=== PATIENT | female | born 1965 | race Caucasian/White ===

== ENCOUNTER 2018-08-02 12:45 | Outpatient (RCR) | payer OTHER, SELFPAY ==
--- NOTE | 2018-02-26 16:12 | PT.OTN ---
Current Diagnoses Mixed incontinence (04/12/18) Other specified urinary incontinence (04/12/18) Other symptoms and signs involving the musculoskeletal system (04/12/18) Transition note: On February 19, 2018 our therapy services consisting of Speech, Occupational, and Physical Therapy transitioned from the [employer] electronic documentation system to a new [facility] electronic documentation system.?? All documentation prior to February 19 can be found under [employer] saved data. From February 19 forward all medical record documentation will be in [facility] 6.1.
--- NOTE | 2018-04-12 15:00 | PT.OPPOC ---
Current Diagnoses Mixed incontinence (04/12/18) Other specified urinary incontinence (04/12/18) Other symptoms and signs involving the musculoskeletal system (04/12/18) Provider Visit Care Team Role Provider Type Caroline Funes MD Family Provider Non-Staff Primary Care Provider Specialty: Medical Address: [address] [place] [address], [place], [address] Email: Natali Davison MD Attending Provider Physician Specialty: WORKERS COMPENSATION EXAMINER Address: [address] [place] [address], [address] Email: [email or web address] Plan Of Care PT-OP-T Assessment and Plan Start: 02/26/18 08:21 Freq: Status: Active Protocol: Document 04/12/18 10:36 LRN (Rec: 04/12/18 10:58 LRN [id number]) Physical Therapy Assessment Rehab Potential Rehabilitation Potential Fair Evaluation Complexity Number of Personal Factors/Comorbidities 3 or More Number of Body Systems Impaired 3 Clinical Presentation at Evaluation Evolving Impairments Impairments Activity Tolerance Posture Strength Other Concerns Age Related Concerns Impact on work, family, and children. Relation of dysfunction to body image & career. Barriers to Rehabilitation Co-Morbidities. Chronicity of Condition. LBP. Goals Four Impairment Pt performs 6 Quick Flicks prior to decrease in strength of contraction. Dry Cleaning Supervisor Goal (LTG) Pt will be able to perform 10 Quick Flicks prior to fatigue and notable loss of strength of contraction in order to maintain continence when needing to reach a bathroom after a sudden urge. Three Impairment Pt is not able to hold a PF contraction 10 sec's before fatigue. Dry Cleaning Supervisor Goal (LTG) Pt will be able to hold a PF contraction 10 sec's prior to fatigue with or without assisted muscles in order to minimize urinary leakage with a stress (cough, sneeze, walking). Two Impairment Pt facilitates a PF contraction with her abdomen, gluteals, hip AD's Dry Cleaning Supervisor Goal (LTG) Pt will be able to perform a PF contraction in isolation of substitute muscles. One Impairment Lacks appropriate home program . Mcc Goal (LTG) Pt educated in HEP/Self Care Program. LTG Duration 2 months (06/20/18) Progress Towards Goals Progress Towards Goals Slow Progress due to Attendance Issues Slow Progress due to Medical Issues Progress Comments Pt has been sick with a cough for several weeks. She continues to have a lingering cough that she feels is getting better. Assessment Summary Assessment Pt returns today after a 2 month absence due to work, illness and transportation challenges with the schedule. The pt has returned demonstrating symmetry of her hip rotation mobility and improved PF strength with a palpable lift of the PF present with vaginal palpation . She has weakness posteriorly and at 9 of the PF Clock. Her illness has left her with a lingering cough and therefore she appears to have worsened in her overall force of contraction, and has no change in her urinary incontinence episodes. Now that the pt is feeling better, I recommend continuation of therapy to progress her program. With her summer schedule, the pt would like to decrease therapy to 1x/month for recheck and advancement of her home program as she is able. The pt would benefit from skilled physical therapy to advance her program and maximize her level of continence now that she is feeling better and may be able to focus more on her exercise program now that she is on a summer schedule. Physical Therapy Plan Frequency and Duration Frequency of Treatment 1-2x/month Duration of Treatment 2 months Plan of Care Start Date 04/12/18 Plan of Care End Date 06/14/18 Therapeutic Interventions Therapeutic Interventions Home Exercise Program Manual Therapy Neuromuscular Re-education Patient/Caregiver Education Self-Care/Home Management Soft Tissue Mobilization Therapeutic Exercises Modalities Biofeedback Cold Pack/Ice Massage Hot Packs Next Visit Focus/Plan Next Visit Plan Recheck Strength and endurance of PF, monitor symptoms ( leakage). Progress to sitting /standing (yoga positions) PF ex's with caution for LBP. E- Stim to facilitate PF contraction. Plan of Care Dates Plan of Care Start Date 04/12/18 Plan of Care End Date 06/14/18 Please Sign and Return: I have reviewed this Plan of Care and certify that the skilled therapy services above are required to meet the patient?s needs. Physician Signature Date Printed Name and Credentials Clinical Instructor Signature Printed Name and Credentials
--- NOTE | 2018-04-12 15:00 | PT.OTN ---
Current Diagnoses Mixed incontinence (04/12/18) Other specified urinary incontinence (04/12/18) Other symptoms and signs involving the musculoskeletal system (04/12/18) Physical Therapy Treatment Note PT-OP-A Visit Information Start: 02/26/18 08:21 Freq: Status: Active Protocol: Document 04/12/18 10:36 LRN (Rec: 04/12/18 10:58 LRN [id number]) Out-Patient Physical Therapy Visit Information Visit Information Visit Type Progress Note Visit Note Visit Start Time 10:36 Visit Stop Time 11:31 Total Visit Minutes 55 Visit Number 8 Number of BULK SYSTEM OPERATOR Visits 0 Evaluation Information Evaluation Date 11/16/17 PT-OP-B Current Condition Start: 04/12/18 09:46 Freq: Status: Active Protocol: Document 04/12/18 17:34 LRN (Rec: 04/12/18 17:49 LRN [id number]) Current Condition History of Current Condition Onset Date 10 yrs ago Current Complaints Urinary Incontinence History of Current Condition 10 yr history of urinary incontinence that has worsened in the last 2 years, requiring her to wear heavy duty pads and changing 1-2 times a day. She had a R posterior SEAN surgery 2 yrs ago and an onset of what she thinks could be restless leg syndrome. She has with walking , an irritating pinching and sometimes sharp pain in the lower abdomen region. She states she feels mostly an ache, but sometimes the pinching/sharp pain that signals to her the need to urinate, and sometimes she feels the same pain after urinating. The pain interrupts her sleep at night. Treatment Goals Patient/Caregiver Goals Pt goal is to improve her level of continence to be able to go longer at work without having to urinate and to be able to exert (cough, sneeze, exercise without leaking, and to be able to make it to a bathroom without leaking. Prior Functional Status Baseline Function- ADL's Independent Baseline Function- Mobility Independent Baseline Function- Work/School Wets pads, but not outerwear. Urinary leakage varies daily. Has some trouble with constipation. Trying to do bowel massage daily. Current Functional Impairments (Reported) Functional Limitations- ADL's Restricted in planned outings. Personal Factors Other Personal Factors That May Effect R leg long requiring Therapy/Recovery corrective shoe wear, R posterior SEAN 2 yrs ago, back pain, arthritis. 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 PT-OP-C Subjective Start: 02/26/18 08:21 Freq: Status: Active Protocol: Document 04/12/18 10:36 LRN (Rec: 04/12/18 10:58 LRN [id number]) OP-PT Subjective Patient Comments Patient Comments Caught a cold and feel like she's lost ground with all the coughing. Still coughing. Wetting pad but not outerwear. Feeling raw in her outer pelvic floor tissues. Patient Questionnaires Pelvic Pain and Urgency/Frequency Patient Symptom Scale Pelvic Pain Score 7 (was 9 on 02/14/18) PT-OP-I Pelvic Floor Start: 02/26/18 08:21 Freq: Status: Active Protocol: Document 04/12/18 10:36 LRN (Rec: 04/12/18 10:58 LRN [id number]) Pelvic Floor Assessment Urine Pelvic Floor Surgery No Urinary Symptoms Urge Sensation Dribbling After Urination Incomplete Emptying Falling Out Feeling/Heavy Leakage Size Large Leakage Cause Cough Lifting Sneeze Urge Other Leakage Causes Walking Leaks Per Day 1-3 large Voiding Frequency 1/2 hrs Nocturia Yes once Urine Pad Type Maxi Pad Bowel Bowel Surgery No Bowel Symptoms Constipation Pelvic Clock Pelvic Clock 3-6 Tightness Prolapse Cystocele Grade 2 Prolapse Comments In Supine: the bladder has dropped down into the vaginal canal opening, but does not appear to extend beyond the hymen ring with mild coughing. Perineal Descent Resting Present Bearing Present SEMG (uV) Baseline 2.10 Quick Contraction 8.23 10 Second Contraction 10.4 Recruitment Pattern Fair Relaxation Fair Holding Poor/Slow Contraction Ability Voluntary Contraction Moderate Manual Muscle Testing Left 4 Manual Muscle Testing Right 4 Manual Muscle Testing Anterior 4 Manual Muscle Testing Posterior 4 Comments Pelvic Floor Comments Long Hold: Pt holds a 10 sec PF contraction. Decrease in strength noted after 2nd rep per EMG Biofeedback. Quick Flick: Pt performs 6 contractions prior to fatigue noted. Weakness of the PF Clock at 3 > 9 O'Clock. Visual Inspection: Redness is present in the perineum, most noticeable at Labia Majora & Labia Minora. PT-OP-J Posture/Palpation/Skin Start: 06/22/18 09:46 Freq: Status: Active Protocol: Document 04/12/18 10:36 LRN (Rec: 04/12/18 10:58 LRN [id number]) Posture Evaluation Comments Posture Comments .... PT-OP-K Range of Motion Start: 04/12/18 09:46 Freq: Status: Active Protocol: Document 04/12/18 10:36 LRN (Rec: 04/12/18 10:58 LRN [id number]) Hip Goniometric Range of Motion Hip Measured in Degrees Right Passive Testing Position Supine Internal Rotation 45 External Rotation 70 Left Passive Testing Position Supine Internal Rotation 45 External Rotation 70 PT-OP-Q Treatments Start: 02/26/18 08:21 Freq: Status: Active Protocol: Document 04/12/18 10:36 LRN (Rec: 04/12/18 18:34 LRN [id number]) Therapeutic Exercises Supine Exercises 4 Supine Exercise Name Gluteal assisted PF contraction Reps/Minutes 8 x 3 Supine Exercise Name R Hip AD Assisted PF contraction Reps/Minutes 12 x 2 Supine Exercise Name Quick Flicks: PF Contraction with/without Bolster under knees Reps/Minutes 10 x 1 Supine Exercise Name Long Hold: PF Contraction with /without Bolster under knees Reps/Minutes 10 x Self-Care/Home Management Treatment Education Patient Education Home Exercise Program Other Education I/S pt in HEP of PF contractions: 1) Assisted with Hip AD, 2) Assisted with gluteal squeezes, 3) with hips elevated or in Down Dog Yoga pose. Pt to increase times per day with less repetitions (5-10). Reviewed PF contractions prior to coughing . PT-OP-T Assessment and Plan Start: 02/26/18 08:21 Freq: Status: Active Protocol: Document 04/12/18 10:36 LRN (Rec: 04/12/18 10:58 LRN [id number]) Physical Therapy Assessment Rehab Potential Rehabilitation Potential Fair Evaluation Complexity Number of Personal Factors/Comorbidities 3 or More Number of Body Systems Impaired 3 Clinical Presentation at Evaluation Evolving Impairments Impairments Activity Tolerance Posture Strength Other Concerns Age Related Concerns Impact on work, family, and children. Relation of dysfunction to body image & career. Barriers to Rehabilitation Co-Morbidities. Chronicity of Condition. LBP. Goals Four Impairment Pt performs 6 Quick Flicks prior to decrease in strength of contraction. Shelter Goal (LTG) Pt will be able to perform 10 Quick Flicks prior to fatigue and notable loss of strength of contraction in order to maintain continence when needing to reach a bathroom after a sudden urge. Three Impairment Pt is not able to hold a PF contraction 10 sec's before fatigue. Shelter Goal (LTG) Pt will be able to hold a PF contraction 10 sec's prior to fatigue with or without assisted muscles in order to minimize urinary leakage with a stress (cough, sneeze, walking). Two Impairment Pt facilitates a PF contraction with her abdomen, gluteals, hip AD's Shelter Goal (LTG) Pt will be able to perform a PF contraction in isolation of substitute muscles. One Impairment Lacks appropriate home program . Brush Maker Goal (LTG) Pt educated in HEP/Self Care Program. LTG Duration 2 months (06/20/18) Progress Towards Goals Progress Towards Goals Slow Progress due to Attendance Issues Slow Progress due to Medical Issues Progress Comments Pt has been sick with a cough for several weeks. She continues to have a lingering cough that she feels is getting better. Assessment Summary Assessment Pt returns today after a 2 month absence due to work, illness and transportation challenges with the [employer] schedule. The pt has returned demonstrating symmetry of her hip rotation mobility and improved PF strength with a palpable lift of the PF present with vaginal palpation . She has weakness posteriorly and at 9 of the PF Clock. Her illness has left her with a lingering cough and therefore she appears to have worsened in her overall force of contraction, and has no change in her urinary incontinence episodes. Now that the pt is feeling better, I recommend continuation of therapy to progress her program. With her summer schedule, the pt would like to decrease therapy to 1x/month for recheck and advancement of her home program as she is able. The pt would benefit from skilled physical therapy to advance her program and maximize her level of continence now that she is feeling better and may be able to focus more on her exercise program now that she is on a summer schedule. Physical Therapy Plan Frequency and Duration Frequency of Treatment 1-2x/month Duration of Treatment 2 months Plan of Care Start Date 04/12/18 Plan of Care End Date 06/14/18 Therapeutic Interventions Therapeutic Interventions Home Exercise Program Manual Therapy Neuromuscular Re-education Patient/Caregiver Education Self-Care/Home Management Soft Tissue Mobilization Therapeutic Exercises Modalities Biofeedback Cold Pack/Ice Massage Hot Packs Next Visit Focus/Plan Next Visit Plan Recheck Strength and endurance of PF, monitor symptoms ( leakage). Progress to sitting /standing (yoga positions) PF ex's with caution for LBP. E- Stim to facilitate PF contraction.
--- NOTE | 2018-08-02 16:05 | PT.OTN ---
Current Diagnoses Mixed incontinence (08/02/18) Other specified urinary incontinence (08/02/18) Other symptoms and signs involving the musculoskeletal system (08/02/18) Physical Therapy Treatment Note PT-OP-A Visit Information Start: 02/26/18 08:21 Freq: Status: Active Protocol: Document 08/02/18 12:47 LRN (Rec: 08/02/18 13:41 LRN [id number]) Out-Patient Physical Therapy Visit Information Visit Information Visit Type Discharge Summary Visit Note Visit Start Time 12:47 Visit Stop Time 13:40 Total Visit Minutes 53 Visit Number 9 Number of SCOOPING MACHINE TENDER Visits 0 Evaluation Information Evaluation Date 11/16/17 PT-OP-B Current Condition Start: 04/12/18 09:46 Freq: Status: Active Protocol: Document 04/12/18 10:36 LRN (Rec: 04/12/18 17:49 LRN [id number]) Current Condition History of Current Condition Onset Date 10 yrs ago Current Complaints Urinary Incontinence History of Current Condition 10 yr history of urinary incontinence that has worsened in the last 2 years, requiring her to wear heavy duty pads and changing 1-2 times a day. She had a R posterior SEAN surgery 2 yrs ago and an onset of what she thinks could be restless leg syndrome. She has with walking , an irritating pinching and sometimes sharp pain in the lower abdomen region. She states she feels mostly an ache, but sometimes the pinching/sharp pain that signals to her the need to urinate, and sometimes she feels the same pain after urinating. The pain interrupts her sleep at night. Treatment Goals Patient/Caregiver Goals Pt goal is to improve her level of continence to be able to go longer at work without having to urinate and to be able to exert (cough, sneeze, exercise without leaking, and to be able to make it to a bathroom without leaking. Prior Functional Status Baseline Function- ADL's Independent Baseline Function- Mobility Independent Baseline Function- Work/School Wets pads, but not outerwear. Urinary leakage varies daily. Has some trouble with constipation. Trying to do bowel massage daily. Current Functional Impairments (Reported) Functional Limitations- ADL's Restricted in planned outings. Personal Factors Other Personal Factors That May Effect R leg long requiring Therapy/Recovery corrective shoe wear, R posterior SEAN 2 yrs ago, back pain, arthritis. 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 PT-OP-C Subjective Start: 02/26/18 08:21 Freq: Status: Active Protocol: Document 08/02/18 12:47 LRN (Rec: 08/02/18 13:41 LRN [id number]) OP-PT Subjective Patient Comments Patient Comments States not much has changed. Still as incontinent. She might have more trouble with constipation than she thought Patient Reported Progress Same Patient Questionnaires Pelvic Pain and Urgency/Frequency Patient Symptom Scale Pelvic Pain Score 13 = 74% positive for Potassium Sensitivity Test ( was 7 on 04/12/18) PT-OP-I Pelvic Floor Start: 02/26/18 08:21 Freq: Status: Active Protocol: Document 08/02/18 12:47 LRN (Rec: 08/02/18 15:25 LRN [id number]) Pelvic Floor Assessment Urine Urinary Symptoms Urge Sensation Dribbling After Urination Falling Out Feeling/Heavy Leakage Size Large Leakage Cause Cough Exercise Lifting Sneeze Urge Other Leakage Causes Walking Leaks Per Day Constant Nocturia 2 x Bowel Bowel Surgery No Bowel Symptoms Constipation Prolapse Cystocele Grade 2 Prolapse Comments In Supine: the bladder is dropped down into the vaginal canal opening, but does not drop beyond the hymen ring with mild coughing. Perineal Descent Resting Absent Bearing Absent Contraction Ability Voluntary Contraction Moderate Manual Muscle Testing Left 3 Manual Muscle Testing Right 2 Manual Muscle Testing Anterior 4 Manual Muscle Testing Posterior 4 Comments Pelvic Floor Comments There is redness in the Labia Minora & Majora bilaterally with 2 very small areas of what appears to be skin break down where increased redness is noted. Her vaginal canal area appears to be quite red in appearance. Long Hold: Pt holds a 8 sec PF contraction. Decrease in strength noted after 2nd rep per EMG Biofeedback. Quick Flick: Pt performs 10 contractions prior to fatigue on R side (9 O'Clock of the PF Clock). Weakness of the PF Clock at 3 > 9 O'Clock. Visual Inspection: Redness is present in the perineum, most noticeable at Labia Majora & Labia Minora. PT-OP-K Range of Motion Start: 04/12/18 09:46 Freq: Status: Active Protocol: Document 04/12/18 10:36 LRN (Rec: 04/12/18 10:58 LRN [id number]) Hip Goniometric Range of Motion Hip Measured in Degrees Right Passive Testing Position Supine Internal Rotation 45 External Rotation 70 Left Passive Testing Position Supine Internal Rotation 45 External Rotation 70 PT-OP-Q Treatments Start: 02/26/18 08:21 Freq: Status: Active Protocol: Document 08/02/18 12:47 LRN (Rec: 08/02/18 15:25 LRN [id number]) Therapeutic Exercises Supine Exercises 2 Supine Exercise Name Quick Flicks: PF Contraction without Bolster under knees Comments For Long hold assessment 1 Supine Exercise Name Long Hold: PF Contraction without Bolster under knees Comments For Long hold assessment Sidelying Exercises 3 Sidelying Exercise Name Kegel with Clamshell lift of bottom leg Reps/Minutes 8' 2 Sidelying Exercise Name Kegel with Reverse Clamshell Reps/Minutes 8' 1 Sidelying Exercise Name Kegel with Clamshell Side bilateral Reps/Minutes 8' Sitting Exercises 1 Sitting Exercise Name Kegel with Hip AB/AD Reps/Minutes 2' Comments Reviewed with handout Standing Exercises 1 Standing Exercise Name Plie Reps/Minutes 2' Comments Reviewed with handout Self-Care/Home Management Treatment Education Patient Education Home Exercise Program Other Education Discussed options for PF care. Pt explained her frustration with health care system and concerns that she has variable incontinence, but overall no improvement noted while at work. Activities Self-Care/Home Management Activities Pt issued and reviewed HEP: Clamshell/Reverse Clamshell; Standing Plie, Sitting resisted hip AB and I/S for isometric hip AD. Quickly reviewed SI Joint dysfunction correction. PT-OP-T Assessment and Plan Start: 02/26/18 08:21 Freq: Status: Active Protocol: Document 08/02/18 12:47 LRN (Rec: 08/02/18 13:41 LRN [id number]) Physical Therapy Assessment Goals Four Impairment Pt performs 6 Quick Flicks prior to decrease in strength of contraction. Intermediate Goal (LTG) Pt will be able to perform 10 Quick Flicks prior to fatigue and notable loss of strength of contraction in order to maintain continence when needing to reach a bathroom after a sudden urge. LTG Duration Goal not met for maintaining continence. Three Impairment Pt is not able to hold a PF contraction 10 sec's before fatigue. Intermediate Goal (LTG) Pt will be able to hold a PF contraction 10 sec's prior to fatigue with or without assisted muscles in order to minimize urinary leakage with a stress (cough, sneeze, walking). LTG Duration Goal not MEt Two Impairment Pt facilitates a PF contraction with her abdomen, gluteals, hip AD's Drilling Field Specialist Goal (LTG) Goal met. One Impairment Lacks appropriate home program . Drilling Field Specialist Goal (LTG) Pt educated in HEP/Self Care Program. LTG Duration Goal met Assessment Summary Assessment The pt has been seen 2x since 02/14/18, once in March and then today, she has attended therapy 9 times in 10 months due to her work and living location. It has been 4 months since her last appointment. She attended today without her vaginal electrode; therefore assessment was manual. She returns with ability to isolate her PF contractions and is able to perform 10 Quick contractions with good strength anteriorly, posteriorly and moderately on the left side (3 O'Clock of the PF Clock). She is worse on her long holds and is only able to maintain a contraction for 8 sec's. She has palpable weakness on the R side (9 O'Clock of the PF clock). Her symptoms are worse as she now reports her incontinence is constant and variable in urine output. The pt has not been able to achieve improved continence with therapy, possibly due to poor attendance. The pt is frustrated and feels therapy is not helping. I have issued the pt progressive ex's for sitting and standing, but further medical assessment is needed for the symptoms she is feeling in her PF and for her ongoing incontinence issues. She is being referred back to your office for other options of care. Physical Therapy Plan Discharge Physical Therapy Discharge Reasons Patient Request Discharge Comments Pt returns after 4 months with reports of no improvement. She is ready to return to [facility] for other options of care because physical therapy has not been successful in preventing her incontinence. The pt is being discharged from therapy and referred back to Dr. Davison for follow up care.
== END 2018-09-20 11:07 ==
LOC: PHYS 12:45
PROVIDERS: Family Provider Family Medicine; PCP Family Medicine; Visit Provider Obstetrics & Gynecology
DX: N39.46 Mixed incontinence (principal); N39.498 Other specified urinary incontinence; R29.898 Other symptoms and signs involving the musculoskeletal system
CPT/HCPCS: 95831; 97110; 97535

== ENCOUNTER 2024-04-03 09:54 | Day surgery (SDC) | payer OTHER, SELFPAY ==
[2024-04-02 07:31] VITALS: BMI 32.4
--- NOTE | 2024-04-03 | PATH_ITS ---
[facility] Accession Number: [id number] No. of containers..01 Tissue . 01 Material submitted: . endometrium - ENDOMETRIAL POLYP . 01 Diagnosis: ENDOMETRIAL POLYP, BIOPSY: Benign endometrial polyp. No endometrioid intraepithelial neoplasia and no malignancy. [facility] 04/08/2024 1535 Local . 01 Electronically signed: . Heather Correa MD, Pathologist NPI- [id number] . 01 Gross description: . ENDOMETRIAL POLYP: Received in formalin are minute fragments of mucoid and hemorrhagic material measuring 2.0 x 2.0 x 0.2 cm in aggregate. Submitted in toto in 1 cassette. /BRANDEN 04/04/2024 1852 Local . 01 Pathologist provided ICD-10: N84.0 . 01 CPT . 968077 Specimen Comment: A courtesy copy of this report has been sent to [phone] Performed at: [address] [facility] [address], [place], [place] [id number] MD Daquan Fisher MD Phone: [phone]
--- NOTE | 2024-04-03 09:34 | PM.PREOP ---
Pre-operative Note Interval Note History & Physical reviewed/Exam performed by Physician: Yes Changes to H&P: No H&P completed within 30 days and has changed as indicated here:: 04/03/24
[2024-04-03 10:31] VITALS: BP 146/86; PULSE 76; RESP 16; TEMP 36.6; O2SAT 97; BMI 31.6
[2024-04-03] MEDS: LACTATED RINGERS 1,000 ML 42 ML IV (10:40)
--- NOTE | 2024-04-03 11:22 | SUR.OPER ---
Lithotomy on padded OR bed, head on pillow, arms secured on padded arm boards at <90 degrees abduction. Legs secured in padded yellow fins stirrups.
--- NOTE | 2024-04-03 11:22 | PM.GYNHP.1 ---
History of Present Illness History of Present Illness Reason for admission: vaginal bleeding Narrative: Leandra Orona is a 58 year old female 4 para 2 who presents for a D&C hysteroscopy with possible resection of polyps and fibroid. This is being done due to postmenopausal bleeding and polyp seen in the office. [facility] Surgical History (Updated 04/02/24 @ 07:35 by Rosangela Rodriguez RN) History of 2 sections Social History household members: spouse Smoking Status: Never smoker alcohol intake: current Meds Home Medications and Allergies Home Medications Medication Instructions Recorded Confirmed Type multivitamin (Multiple Vitamins 1 tab PO QDAY ##0 10/10/17 04/03/24 History tablet) estradiol 0.01% (0.1 mg/gram) 1 g vaginal 2XW 02/21/24 04/03/24 History vaginal cream Allergies Allergy/AdvReac Type Severity Reaction Status Date / Time morphine [MORPHINE] Allergy Unknown Verified 04/03/24 10:20 Exam Vital Signs (past 8 hours): - 04/03/24 10:31 Temperature 97.8 F Pulse Rate 76 Respiratory Rate 16 Blood Pressure 146/86 H Pulse Oximetry 97 Oxygen Delivery Method Room Air Oxygen Delivery Method Room Air Narrative Exam Narrative: HEENT: No thyromegaly, no anterior cervical or supraclavicular lymphadenopathy. Lungs:Clear to auscultation bilaterally, no wheezes. Cardiovascular: Regular rate and rhythm, no murmurs, rubs, or gallops. Abdomen: Well-healed Pfannenstiel scars. No hepatosplenomegaly. No masses palpable. External genitalia: Normal Vagina: Normal Cervix: Normal Bimanual exam: 6 Week size anteverted uterus. Mobile. Extremities: No edema Assessment & Plan Assessment & Plan narrative: Assessment: 58-year-old 4 para 2 with postmenopausal bleeding and an endocervical/endometrial biopsy on pathology from removal in the office Fibroid on ultrasound Plan: D&C hysteroscopy with possible resection of endometrial/endocervical polyp and possible resection of submucosal fibroid. The risks, benefits, and alternatives to the procedure were explained to the patient. The risks including bleeding, infection, and uterine perforation. She understands these risks and agrees to proceed. A full par Q was held and consent form was signed. Time Spent With Patient Time with patient: less than 30 minutes
[2024-04-03 12:20] VITALS: BP 119/84; PULSE 65; RESP 12; TEMP 36.6; O2SAT 95
--- NOTE | 2024-04-03 12:21 | PM.GYNOP.1 ---
Operative Date/Time/Diagnoses Date of procedure: 04/03/24 Time of procedure: 12:21 Pre-op diagnosis: Postmenopausal bleeding Endometrial polyp Post-op diagnosis: same Procedure & Clinicians Procedure: Procedures Operation Date: 04/03/24 11:15 Actual Procedure Side Surgeon p Hysteroscopy D&C, polypectomy, resection of fibroids Natali Davison MD Indications: 58-year-old 4 para 2 with postmenopausal bleeding and an endometrial polyp and possible fibroid on ultrasound Pathology returned with endometrial polyp from polyp removed in the office Surgeon: Natali Davison Anesthesia Type: General (LMA) Operative Notes Findings: 6 week size anteverted uterus Both fallopian tube ostia observed 2 cm polyp arising from the right fundus of the uterus No submucosal fibroids were visualized Closure Type: not applicable Specimen(s): endometrial polyp Estimated blood loss (mL): 5 Blood products transfused: none Procedure in detail: After informed consent was obtained, the patient was taken to the operating room where she was placed in the dorsal supine position. After adequate LMA general anesthesia was achieved, she was placed in the dorsal lithotomy position, and prepped and draped in the usual sterile fashion. A time-out was performed. A bivalve speculum was placed into the vagina and the anterior lip of the cervix was grasped with a single-tooth tenaculum the cervical os was sequentially dilated to the #8 Hegar dilator. The MyoSure hysteroscope passed easily into the endometrial cavity. Both fallopian tube ostia were observed. There was a 2 cm polyp coming from the right fundal area of the uterus. There were no submucosal fibroids visible. Using the MyoSure Lite this was resected. The instruments were removed from the uterus. The single-tooth tenaculum was removed from the anterior lip of the cervix. The bivalve speculum was removed from the vagina. Sponge, lap, and instrument counts were correct x2. The patient tolerated the procedure well, and was taken to PACU in stable condition. Complications: none Post-operative Condition: stable Disposition: PACU Plan for aftercare: Home after recovery
[2024-04-03 12:25] VITALS: BP 108/79; PULSE 63; RESP 13; O2SAT 95
[2024-04-03 12:30] VITALS: BP 110/78; PULSE 59; RESP 14; O2SAT 98
[2024-04-03 12:32] VITALS: BP 117/69; PULSE 60; RESP 18; TEMP 36.4; O2SAT 98
== END 2024-04-03 13:12 | disposition home or self-care (01) ==
PROVIDERS: Family Provider Family Medicine; PCP Physician Assistant; Referring Provider Obstetrics & Gynecology; Visit Provider Obstetrics & Gynecology
PROC: 0UDB8ZZ Extraction of Endometrium, Via Natural or Artificial Opening Endoscopic (ICD-10-PCS; CPT 58558; principal; 2024-04-03 11:15)
DX: N84.0 Polyp of corpus uteri (principal); N95.0 Postmenopausal bleeding
CPT/HCPCS: 58558; J1100; J1885; J2250; J2405; J2704; J3010

== ENCOUNTER 2024-09-15 07:33 | Day surgery (SDC) | payer OTHER, SELFPAY ==
[2024-09-11 12:31] VITALS: BMI 32.2
[2024-09-15] VITALS (10 sets, daily range): BP systolic 121–144; BP diastolic 75–94; PULSE 52–90; RESP 12–19; TEMP 36.3–36.9; O2SAT 97–100; BMI 32.2
[2024-09-15] MEDS: ACETAMINOPHEN 325 MG TABLET 975 MG PO (08:22)
[2024-09-15] MEDS: LACTATED RINGERS 1,000 ML 42 ML IV (08:42)
--- NOTE | 2024-09-15 09:11 | SUR.OPER ---
Lithotomy on padded OR bed, head on pillow, arms secured on padded arm boards at <90 degrees abduction. Legs secured in padded yellow fins stirrups.
[2024-09-15] MEDS: CEFAZOLIN 2 GM/100 ML PREMIX 100 ML IV (09:45)
[2024-09-15] MEDS: BUPIVACAINE 0.25% (PF) 30 ML, EPINEPHrine 0.15 MG INJ (09:56)
--- NOTE | 2024-09-15 11:07 | P.OP_ITS ---
Operative Date/Time/Diagnoses Date of procedure: 09/15/24 Time of procedure: 11:07 Pre-op diagnosis: Stress urinary incontinence Increased urethrovesical angle Post-op diagnosis: same Procedure & Clinicians Procedure: Procedures Operation Date: 09/15/24 09:30 Actual Procedure Side Surgeon p Tensionless Vaginal Tape with cystoscopy Natali Davison MD Indications: Patient is a 58 year old with stress urinary incontinence validated by urodynamic testing who desires surgical management Surgeon: Natali Davison Chlorobutadiene Scrubber Operator: Ynes Lei Anesthesia Type: General and Local Operative Notes Findings: Increased urethrovesical angle with valsalva Closure Type: primary Specimen(s): none Applied: catheter (to continuous drainage) Estimated blood loss (mL): 50 Blood products transfused: none Procedure in detail: The patient was taken to the operating room where she was placed in the dorsal supine position. After adequate general endotracheal anesthesia was achieved, she was placed in the dorsal lithotomy position, and prepped and draped in the usual sterile fashion. A Franco retractor was placed into the vagina. Two narrow Allis clamps were placed laterally from the urethra about 1.5 cm from the urethral meatus. 3 cc of 0.25% Marcaine with epinephrine were injected submucosally. A 1-1/2 cm incision was made vertically 1-1/2 2 cm away from the urethral meatus at the mid urethra. This incision was dissected out laterally with the Metzenbaum scissors. The midline of the patient's abdomen was marked as well as 2 cm lateral on each side just above the pubic symphysis. The p atient was placed flat on the table with her thighs parallel to the floor. A rigid catheter was placed into the bladder. Using a 20 gauge spinal needle with 10 cc of 0.25% Marcaine with epinephrine, the proposed tract of the TVT on the right side by retracting the bladder neck away from the patient's right side by placing a rigid catheter along the patient's right thigh. This was repeated on the patient's left side with the bladder neck retracted away from the patient's left side. The proposed path was then dilated up to the # 5 Hegar dilator with the bladder neck retracted away from the side being work done. The TVT was loaded on the introducer. A hemostat was placed on the overlapping plastic sheath of the TVT with care not to include the TVT in the hemostat. Starting on the patient's right side with the bladder neck retracted away from the patient's right side the TVT me who was directed towards the patient's right shoulder, after perforating the urogenital diaphragm it was directed up behind the pubic symphysis and out and a 0.5 cm lateral to the midline. A 3 mm incision was made with a #15 blade. The plastic introducer was grasped with a Anitra. All of this was repeated on the patient's left side with the bladder neck retracted away from the patient's left side by placing the rigid catheter along the patient's left thigh. A cystoscopy was then performed which revealed no introducer or TVT in the bladder. The plastic introducers were pulled up with care not to over tighten at the level of the urethra. Width a pickup between the TVT and the urethra, the introducers were cut from the TVT and the plastic sheath was removed, after the hemostat was removed from the midline where the plastic sheath overlapped. Mr. the TVT was cut below the skin after slight tension was placed, and the pickup remained between the TVT and the urethra in the vagina. Care was taken to not over tightened. The abdominal incisions were closed with Dermabond. There was some oozing in the vagina and using a small lap sponge, pressure was held for 5 minutes and the bleeding ceased. The mucosal incision was closed with 3-0 Vicryl with running interlocking suture, with care not to include the TVT in the suture. Hemostasis was achieved. The Cooper catheter was removed. Sponge, lap, and instrument counts were correct x2. The patient tolerated the procedure well, and was taken to PACU in stable condition. Complications: none Post-operative Condition: stable Disposition: PACU Plan for aftercare: Home after recovery and PVR
[2024-09-15] MEDS: BENZOCAINE/MENTHOL 1 LOZ PKT 1 EACH PO (11:44)
--- NOTE | 2024-09-15 14:04 | SUR.PHASEII ---
Post Void BVI Patient to void prior to discharge and then post void BVI to be obtained as instructed by Dr. Davison. Patient void 350mL. BVI >1000mL. Patient encouraged to void more, but unable to do so. Dr. Davison notified of above findings. Received order to place Urethral Catheter. Urethral Catheter place as ordered per protocol. Patient tolerated placement of catheter well and had immediate clear yellow urine (approximately 600mL) noted in drainage bag. Dr. Davison to see patient prior to discharge. Awaiting additional orders.
[2024-09-15] MEDS: IBUPROFEN 600 MG TABLET PO (16:00)
== END 2024-09-15 16:04 | disposition home or self-care (01) ==
LOC: OR 07:34 → AC 07:36
PROVIDERS: Family Provider Family Medicine; PCP Physician Assistant; Referring Provider Obstetrics & Gynecology; Visit Provider Obstetrics & Gynecology
PROC: 0TSD0ZZ Reposition Urethra, Open Approach (ICD-10-PCS; CPT 57288; principal; 2024-09-15 09:30)
DX: N39.3 Stress incontinence (female) (male) (principal)
CPT/HCPCS: 57288; C1771; J0171; J0690; J1100; J2405; J2704; J3010